=== PATIENT | male | born 1950 | race Caucasian/White ===

== ENCOUNTER 2022-02-21 17:35 | Inpatient (IN) | payer MEDICARE, OTHER ==
[2022-02-21 19:00] LABS: #Lymphocytes 1.2 thou/uL (1.20-3.40); #Monocytes 1.4 thou/uL (0.11-0.59); #Neutrophils 7.9 thou/uL (1.40-6.50); %Basophils 0.1 % (0.0-1.0); %Eosinophils 0.2 % (0.0-10.0); %Lymphocytes 11.3 % (21.0-51.0); %Monocytes 13.1 % (0.0-10.0); %Neutrophils 75.3 % (42.0-75.0); Hemoglobin 13.8 g/dL (14.0-18.0); Mean Corpuscular HGB CONC 32.4 g/dL (32.0-36.0); Mean Corpuscular Hemoglobin 30.5 pg (27.0-31.0); Mean Corpuscular Volume 94.1 fl (78.0-98.0); Mean Platelet Volume 9.5 fL (7.4-10.4); Platelet Count 173 10x3/uL (130-400); RBC Distribution Width 13.8 % (11.5-14.5); Red Blood Cell (RBC) Count 4.51 mill/uL (4.70-6.10); White Blood Cell (WBC) Count 10.5 10x3/uL (4.8-10.8)
[2022-02-21 19:18] LABS: Actual Bicarbonate (HCO3v) 24 mEq/L (22-28); Analyzer IN Cardio ER; Base Excess 0.7 mEq/L (-2.0 to +3.0); Calcium, Ionized (venous) 1.07 mmol/L (1.16-1.32); Chloride (VBG) 99 mmol/L (98-106); Hemoglobin (Hb) 14.5 g/dL (12.6-17.4); Potassium (VBG) 3.78 mmol/L (3.70-5.30); Sodium 131.2 mmol/L (133-146); pH (venous) 7.48 (7.32-7.43)
[2022-02-21 19:29] LABS: Acetaminophen Less than 10.0 mcg/mL (10.0-30.0); Alcohol Less than 10 mg/dL (Less than 10); Salicylate Less than 8.0 mg/dL (15.0-30.0)
[2022-02-21 19:30] LABS: ALT (SGPT) 40 U/L (8-55); AST (SGOT) 42 U/L (5-34); Albumin 3.6 g/dL (3.4-4.8); Alkaline Phosphatase 77 U/L (40-110); Anion Gap 16 mmol/L (10-20); BUN (Urea Nitrogen) 24 mg/dL (8.4-25.7); Bilirubin, Total 3.1 mg/dL (0.2-1.2); Calc. Creatinine Clearance 0 mL/min (70-130); Calcium 8.8 mg/dL (7.8-10.44); Carbon Dioxide 22 mmol/L (23-31); Chloride 100 mmol/L (98-107); Estimated GFR 54; Globulin 2.6 g/dL (2.4-3.5); Glucose 101 mg/dL (83-110); Lipase 20 U/L (8-78); Protein, Total 6.2 g/dL (5.8-8.1); Sodium 134 mmol/L (136-145)
[2022-02-21 19:53] LABS: Bacteria/HPF 4+ HPF (None Seen); Bilirubin Negative (Negative); Blood, Urine Negative (Negative); Clarity Turbid (Clear); Glucose, Urine (Dipstick) Normal (Negative); Ketone, Urine Negative (Negative); Leukocyte 500 Leu/uL (Negative); Nitrite Negative (Negative); Protein, Urine (Dipstick) 10 mg/dL (Neg-Trace); RBC/HPF 0-3 HPF (0-3); Specific Gravity, Urine 1.017 (1.002-1.036); Squamous Epithelial 0-3 HPF (0-3); WBC/HPF Greater than 50 HPF (0-3)
[2022-02-21 19:58] LABS: Amphetamine Not Detected (NotDetected); Barbiturates Screen Not Detected (NotDetected); Benzodiazepine Screen Not Detected (NotDetected); Cocaine Metabolite Screen Not Detected (NotDetected); Methadone Not Detected (NotDetected); Methamphetamine Not Detected (NotDetected); Opiate Screen Not Detected (NotDetected); Oxycodone Screen Not Detected (NotDetected); Phencyclidine (PCP) Not Detected (NotDetected); THC/Cannabinoid Screen Not Detected (NotDetected); Tricyclic Screen Not Detected (NotDetected)
[2022-02-21] MEDS ORDERED: Cefepime 2 GM VIAL ONE (20:14)
[2022-02-21] MEDS ORDERED: Aspirin Chewable 81 MG TAB ONE (20:14)
[2022-02-21] MEDS ORDERED: Acetaminophen 500 MG TAB ONE (20:21)
[2022-02-21] MEDS ORDERED: Vancomycin 1 GM/200 ML (FROZEN) BAG ONE (21:14)
[2022-02-22] MEDS ORDERED: Ondansetron PF 4 MG/2 ML Vial IVP PRN (01:22)
[2022-02-22 05:26] LABS: SARS-CoV-2 NAA Rapid Test Not Detected (NotDetected)
[2022-02-22 06:31] LABS: #Eosinphils 0.1 thou/uL (0.0-0.7); #Lymphocytes 1.9 thou/uL (1.20-3.40); #Monocytes 1.2 thou/uL (0.11-0.59); #Neutrophils 6.1 thou/uL (1.40-6.50); %Basophils 0.1 % (0.0-1.0); %Eosinophils 0.9 % (0.0-10.0); %Lymphocytes 19.9 % (21.0-51.0); %Monocytes 13.3 % (0.0-10.0); %Neutrophils 65.8 % (42.0-75.0); Mean Corpuscular HGB CONC 33.7 g/dL (32.0-36.0); Mean Corpuscular Hemoglobin 32.2 pg (27.0-31.0); Mean Corpuscular Volume 95.5 fl (78.0-98.0); Mean Platelet Volume 9.8 fL (7.4-10.4); Platelet Count 158 10x3/uL (130-400); RBC Distribution Width 13.6 % (11.5-14.5); Red Blood Cell (RBC) Count 4.35 mill/uL (4.70-6.10); White Blood Cell (WBC) Count 9.3 10x3/uL (4.8-10.8)
[2022-02-22 06:40] LABS: Anion Gap 13 mmol/L (10-20); BUN (Urea Nitrogen) 23 mg/dL (8.4-25.7); Calc. Creatinine Clearance 0 mL/min (70-130); Calcium 8.5 mg/dL (7.8-10.44); Carbon Dioxide 19 mmol/L (23-31); Chloride 105 mmol/L (98-107); Estimated GFR 62; Glucose 94 mg/dL (83-110); Potassium 3.5 mmol/L (3.5-5.1); Sodium 133 mmol/L (136-145)
[2022-02-22] MEDS ORDERED: Cefepime 1 GM VIAL ONE (09:29)
[2022-02-22] MEDS: Cefepime 1 GM in Sodium Chloride 0.9% 100 ML IVPB SCH ×2 (09:58→21:14)
[2022-02-22] MEDS: Heparin 5,000 UNITS/ML VIAL SC SCH ×2 (09:59→21:14)
[2022-02-22] MEDS ORDERED: QUEtiapine 25 MG TAB PO SCH (16:20)
[2022-02-22] MEDS ORDERED: Furosemide 20 MG TAB PO ONE (17:43)
[2022-02-22] MEDS ORDERED: Furosemide 20 MG/2 ML VIAL SLOW IVP SCH (17:45)
[2022-02-23 04:59] LABS: #Lymphocytes 1.2 thou/uL (1.20-3.40); #Monocytes 1.3 thou/uL (0.11-0.59); #Neutrophils 7.5 thou/uL (1.40-6.50); %Basophils 0.4 % (0.0-1.0); %Eosinophils 0.4 % (0.0-10.0); %Lymphocytes 12.1 % (21.0-51.0); %Monocytes 13.2 % (0.0-10.0); Hemoglobin 13.2 g/dL (14.0-18.0); Mean Corpuscular HGB CONC 32.7 g/dL (32.0-36.0); Mean Corpuscular Volume 94.7 fl (78.0-98.0); Mean Platelet Volume 9.9 fL (7.4-10.4); Platelet Count 169 10x3/uL (130-400); RBC Distribution Width 13.8 % (11.5-14.5); Red Blood Cell (RBC) Count 4.26 mill/uL (4.70-6.10); White Blood Cell (WBC) Count 10.1 10x3/uL (4.8-10.8)
[2022-02-23 05:21] LABS: Anion Gap 14 mmol/L (10-20); BUN (Urea Nitrogen) 22 mg/dL (8.4-25.7); Calc. Creatinine Clearance 59 mL/min (70-130); Calcium 8.8 mg/dL (7.8-10.44); Carbon Dioxide 22 mmol/L (23-31); Chloride 103 mmol/L (98-107); Estimated GFR 59; Glucose 95 mg/dL (83-110); Potassium 3.7 mmol/L (3.5-5.1); Sodium 135 mmol/L (136-145)
[2022-02-23] MEDS: Cefepime 1 GM in Sodium Chloride 0.9% 100 ML IVPB SCH ×2 (09:53→22:36)
[2022-02-23] MEDS: Heparin 5,000 UNITS/ML VIAL SC SCH ×2 (09:53→22:36)
[2022-02-23] MEDS: Lisinopril 2.5 MG TAB PO SCH (09:53)
[2022-02-23] MEDS: Furosemide 20 MG TAB PO SCH (09:53)
[2022-02-23] MEDS: Digoxin 0.125 MG TAB PO SCH (09:54)
[2022-02-23] MEDS ORDERED: Carvedilol 6.25 MG TAB PO SCH (10:30)
[2022-02-23] MEDS: Carvedilol 6.25 MG TAB PO SCH (16:20)
[2022-02-24 04:37] LABS: #Lymphocytes 1.4 thou/uL (1.20-3.40); #Monocytes 1.1 thou/uL (0.11-0.59); #Neutrophils 7.1 thou/uL (1.40-6.50); %Basophils 0.3 % (0.0-1.0); %Eosinophils 0.4 % (0.0-10.0); %Lymphocytes 14.4 % (21.0-51.0); %Monocytes 11.4 % (0.0-10.0); %Neutrophils 73.5 % (42.0-75.0); Hemoglobin 13.4 g/dL (14.0-18.0); Mean Corpuscular HGB CONC 32.3 g/dL (32.0-36.0); Mean Corpuscular Hemoglobin 30.7 pg (27.0-31.0); Mean Corpuscular Volume 95.2 fl (78.0-98.0); Mean Platelet Volume 10.1 fL (7.4-10.4); Platelet Count 189 10x3/uL (130-400); RBC Distribution Width 13.9 % (11.5-14.5); Red Blood Cell (RBC) Count 4.37 mill/uL (4.70-6.10); White Blood Cell (WBC) Count 9.7 10x3/uL (4.8-10.8)
[2022-02-24 04:49] LABS: Anion Gap 14 mmol/L (10-20); BUN (Urea Nitrogen) 27 mg/dL (8.4-25.7); Calc. Creatinine Clearance 57 mL/min (70-130); Calcium 8.7 mg/dL (7.8-10.44); Carbon Dioxide 20 mmol/L (23-31); Chloride 104 mmol/L (98-107); Estimated GFR 58; Glucose 91 mg/dL (83-110); Potassium 3.5 mmol/L (3.5-5.1); Sodium 134 mmol/L (136-145)
[2022-02-24] MEDS: Digoxin 0.125 MG TAB PO SCH (08:32)
[2022-02-24] MEDS: Cefepime 1 GM in Sodium Chloride 0.9% 100 ML IVPB SCH (08:32)
[2022-02-24] MEDS: Lisinopril 2.5 MG TAB PO SCH (08:33)
[2022-02-24] MEDS: Furosemide 20 MG TAB PO SCH (08:33)
[2022-02-24] MEDS: Carvedilol 6.25 MG TAB PO SCH ×2 (08:33→16:37)
[2022-02-24] MEDS: Heparin 5,000 UNITS/ML VIAL SC SCH ×2 (08:33→22:20)
[2022-02-24] MEDS: Cefdinir 300 MG CAP PO SCH (22:20)
[2022-02-25] MEDS: Furosemide 20 MG TAB PO SCH (09:02)
[2022-02-25] MEDS: Cefdinir 300 MG CAP PO SCH ×2 (09:02→21:50)
[2022-02-25] MEDS: Lisinopril 2.5 MG TAB PO SCH (09:02)
[2022-02-25] MEDS: Digoxin 0.125 MG TAB PO SCH (09:03)
[2022-02-25] MEDS: Heparin 5,000 UNITS/ML VIAL SC SCH ×2 (09:03→21:51)
[2022-02-25] MEDS: Carvedilol 6.25 MG TAB PO SCH ×2 (09:03→17:44)
[2022-02-26] MEDS: Digoxin 0.125 MG TAB PO SCH (09:56)
[2022-02-26] MEDS: Cefdinir 300 MG CAP PO SCH ×2 (09:56→21:01)
[2022-02-26] MEDS: Carvedilol 6.25 MG TAB PO SCH ×2 (09:56→16:57)
[2022-02-26] MEDS: Heparin 5,000 UNITS/ML VIAL SC SCH ×2 (09:56→21:01)
[2022-02-26] MEDS: Furosemide 20 MG TAB PO SCH (09:57)
[2022-02-26] MEDS: Lisinopril 2.5 MG TAB PO SCH (09:57)
[2022-02-27 05:00] LABS: #Eosinphils 0.1 thou/uL (0.0-0.7); #Lymphocytes 1.5 thou/uL (1.20-3.40); %Eosinophils 0.7 % (0.0-10.0); %Lymphocytes 17.9 % (21.0-51.0); %Monocytes 11.7 % (0.0-10.0); %Neutrophils 69.6 % (42.0-75.0); Hemoglobin 13.5 g/dL (14.0-18.0); Mean Corpuscular HGB CONC 32.7 g/dL (32.0-36.0); Mean Corpuscular Hemoglobin 30.8 pg (27.0-31.0); Mean Corpuscular Volume 94.3 fl (78.0-98.0); Mean Platelet Volume 9.6 fL (7.4-10.4); Platelet Count 187 10x3/uL (130-400); RBC Distribution Width 13.7 % (11.5-14.5); Red Blood Cell (RBC) Count 4.39 mill/uL (4.70-6.10); White Blood Cell (WBC) Count 8.6 10x3/uL (4.8-10.8)
[2022-02-27 05:17] LABS: Anion Gap 13 mmol/L (10-20); BUN (Urea Nitrogen) 36 mg/dL (8.4-25.7); Calc. Creatinine Clearance 61 mL/min (70-130); Calcium 8.7 mg/dL (7.8-10.44); Carbon Dioxide 21 mmol/L (23-31); Chloride 101 mmol/L (98-107); Estimated GFR 64; Glucose 81 mg/dL (83-110); Potassium 4.1 mmol/L (3.5-5.1); Sodium 131 mmol/L (136-145)
[2022-02-27] MEDS: Carvedilol 6.25 MG TAB PO SCH ×3 (09:27→17:15)
[2022-02-27] MEDS: Furosemide 20 MG TAB PO SCH ×2 (09:27→21:03)
[2022-02-27] MEDS: Heparin 5,000 UNITS/ML VIAL SC SCH ×2 (09:27→21:03)
[2022-02-27] MEDS: Digoxin 0.125 MG TAB PO SCH (09:27)
[2022-02-27] MEDS: Lisinopril 2.5 MG TAB PO SCH (09:27)
[2022-02-28 05:08] LABS: Anion Gap 13 mmol/L (10-20); BUN (Urea Nitrogen) 42 mg/dL (8.4-25.7); Calc. Creatinine Clearance 55 mL/min (70-130); Calcium 9.1 mg/dL (7.8-10.44); Carbon Dioxide 25 mmol/L (23-31); Chloride 99 mmol/L (98-107); Estimated GFR 55; Glucose 92 mg/dL (83-110); Potassium 4.2 mmol/L (3.5-5.1); Sodium 133 mmol/L (136-145)
[2022-02-28] MEDS: Heparin 5,000 UNITS/ML VIAL SC SCH ×2 (09:24→20:30)
[2022-02-28] MEDS: Furosemide 20 MG TAB PO SCH ×2 (09:24→20:29)
[2022-02-28] MEDS: Digoxin 0.125 MG TAB PO SCH (09:24)
[2022-02-28] MEDS: Carvedilol 6.25 MG TAB PO SCH ×2 (09:24→16:11)
[2022-02-28] MEDS: Lisinopril 2.5 MG TAB PO SCH (09:25)
[2022-02-28] MEDS: Acetaminophen 325 MG TAB PO PRN (20:29)
[2022-03-01] MEDS: Digoxin 0.125 MG TAB PO SCH (08:33)
[2022-03-01] MEDS: Carvedilol 6.25 MG TAB PO SCH ×2 (08:33→20:12)
[2022-03-01] MEDS: Furosemide 20 MG TAB PO SCH (08:34)
[2022-03-01] MEDS: Heparin 5,000 UNITS/ML VIAL SC SCH ×2 (08:34→20:12)
[2022-03-01] MEDS: Lisinopril 2.5 MG TAB PO SCH (08:35)
[2022-03-01] MEDS ORDERED: Electrolyte Replacement Protocol FS PRN (14:00)
[2022-03-01] MEDS ORDERED: Electrolyte Replacement Protocol 1 EACH FS SCH (14:00)
[2022-03-02 07:03] LABS: #Eosinphils 0.1 thou/uL (0.0-0.7); #Lymphocytes 1.5 thou/uL (1.20-3.40); #Monocytes 0.7 thou/uL (0.11-0.59); #Neutrophils 4.6 thou/uL (1.40-6.50); %Basophils 0.5 % (0.0-1.0); %Eosinophils 1.4 % (0.0-10.0); %Lymphocytes 21.1 % (21.0-51.0); %Monocytes 10.5 % (0.0-10.0); %Neutrophils 66.5 % (42.0-75.0); Hemoglobin 13.9 g/dL (14.0-18.0); Mean Corpuscular HGB CONC 32.2 g/dL (32.0-36.0); Mean Corpuscular Hemoglobin 30.6 pg (27.0-31.0); Mean Platelet Volume 9.3 fL (7.4-10.4); Platelet Count 189 10x3/uL (130-400); RBC Distribution Width 13.6 % (11.5-14.5); Red Blood Cell (RBC) Count 4.55 mill/uL (4.70-6.10)
[2022-03-02 07:29] LABS: ALT (SGPT) 32 U/L (8-55); AST (SGOT) 26 U/L (5-34); Albumin 2.9 g/dL (3.4-4.8); Alkaline Phosphatase 95 U/L (40-110); Anion Gap 14 mmol/L (10-20); BUN (Urea Nitrogen) 32 mg/dL (8.4-25.7); Bilirubin, Total 1.2 mg/dL (0.2-1.2); Calc. Creatinine Clearance 56 mL/min (70-130); Carbon Dioxide 24 mmol/L (23-31); Chloride 101 mmol/L (98-107); Estimated GFR 60; Globulin 3.3 g/dL (2.4-3.5); Glucose 78 mg/dL (83-110); Phosphorus 2.9 mg/dL (2.3-4.7); Protein, Total 6.2 g/dL (5.8-8.1); Sodium 135 mmol/L (136-145)
[2022-03-02] MEDS: Heparin 5,000 UNITS/ML VIAL SC SCH ×2 (08:32→20:20)
[2022-03-02] MEDS: Lisinopril 2.5 MG TAB PO SCH (08:32)
[2022-03-02] MEDS: Carvedilol 6.25 MG TAB PO SCH ×2 (08:32→16:23)
[2022-03-02] MEDS ORDERED: Magnesium 2 GM/50 ML(in water) 2 GM in Premix Bag 1 BAG IVPB SCH (09:00)
[2022-03-02] MEDS: Magnesium Oxide 400 MG TAB PO SCH ×2 (09:11→20:18)
[2022-03-02] MEDS: Digoxin 0.125 MG TAB PO SCH (09:11)
[2022-03-02] MEDS: Furosemide 20 MG TAB PO SCH (09:11)
[2022-03-03] MEDS: Magnesium Oxide 400 MG TAB PO SCH ×2 (08:50→20:26)
[2022-03-03] MEDS: Carvedilol 6.25 MG TAB PO SCH ×2 (08:50→17:27)
[2022-03-03] MEDS: Furosemide 20 MG TAB PO SCH (08:50)
[2022-03-03] MEDS: Digoxin 0.125 MG TAB PO SCH (08:50)
[2022-03-03] MEDS: Lisinopril 2.5 MG TAB PO SCH (08:50)
[2022-03-03] MEDS: Heparin 5,000 UNITS/ML VIAL SC SCH ×2 (08:51→20:26)
[2022-03-04] MEDS: Lisinopril 2.5 MG TAB PO SCH (08:46)
[2022-03-04] MEDS: Digoxin 0.125 MG TAB PO SCH (08:48)
[2022-03-04] MEDS: Carvedilol 6.25 MG TAB PO SCH ×2 (08:48→17:55)
[2022-03-04] MEDS: Furosemide 20 MG TAB PO SCH (08:48)
[2022-03-04] MEDS: Magnesium Oxide 400 MG TAB PO SCH ×2 (08:48→21:17)
[2022-03-04] MEDS: Heparin 5,000 UNITS/ML VIAL SC SCH ×2 (08:49→21:18)
[2022-03-05 07:13] LABS: #Eosinphils 0.2 thou/uL (0.0-0.7); #Lymphocytes 1.7 thou/uL (1.20-3.40); #Neutrophils 4.9 thou/uL (1.40-6.50); %Basophils 0.3 % (0.0-1.0); %Eosinophils 2.3 % (0.0-10.0); %Lymphocytes 21.7 % (21.0-51.0); %Monocytes 13.1 % (0.0-10.0); %Neutrophils 62.7 % (42.0-75.0); Hemoglobin 13.5 g/dL (14.0-18.0); Mean Corpuscular HGB CONC 32.6 g/dL (32.0-36.0); Mean Corpuscular Hemoglobin 31.4 pg (27.0-31.0); Mean Corpuscular Volume 96.4 fl (78.0-98.0); Mean Platelet Volume 9.2 fL (7.4-10.4); Platelet Count 173 10x3/uL (130-400); RBC Distribution Width 13.5 % (11.5-14.5); Red Blood Cell (RBC) Count 4.29 mill/uL (4.70-6.10); White Blood Cell (WBC) Count 7.9 10x3/uL (4.8-10.8)
[2022-03-05 07:38] LABS: ALT (SGPT) 34 U/L (8-55); AST (SGOT) 27 U/L (5-34); Albumin 2.9 g/dL (3.4-4.8); Alkaline Phosphatase 96 U/L (40-110); Anion Gap 13 mmol/L (10-20); BUN (Urea Nitrogen) 26 mg/dL (8.4-25.7); Bilirubin, Total 1.1 mg/dL (0.2-1.2); Calc. Creatinine Clearance 66 mL/min (70-130); Calcium 8.8 mg/dL (7.8-10.44); Carbon Dioxide 22 mmol/L (23-31); Chloride 103 mmol/L (98-107); Estimated GFR 73; Globulin 3.3 g/dL (2.4-3.5); Glucose 86 mg/dL (83-110); Potassium 4.6 mmol/L (3.5-5.1); Protein, Total 6.2 g/dL (5.8-8.1); Sodium 133 mmol/L (136-145)
[2022-03-05] MEDS: Lisinopril 2.5 MG TAB PO SCH (09:28)
[2022-03-05] MEDS: Digoxin 0.125 MG TAB PO SCH (09:29)
[2022-03-05] MEDS: Furosemide 20 MG TAB PO SCH (09:29)
[2022-03-05] MEDS: Magnesium Oxide 400 MG TAB PO SCH ×2 (09:29→21:32)
[2022-03-05] MEDS: Carvedilol 6.25 MG TAB PO SCH ×2 (09:29→18:16)
[2022-03-05] MEDS: Heparin 5,000 UNITS/ML VIAL SC SCH ×3 (09:35→21:32)
[2022-03-06 06:40] LABS: #Eosinphils 0.2 thou/uL (0.0-0.7); #Lymphocytes 1.7 thou/uL (1.20-3.40); #Monocytes 0.9 thou/uL (0.11-0.59); #Neutrophils 4.8 thou/uL (1.40-6.50); %Basophils 0.4 % (0.0-1.0); %Eosinophils 2.1 % (0.0-10.0); %Lymphocytes 22.6 % (21.0-51.0); %Monocytes 11.6 % (0.0-10.0); %Neutrophils 63.3 % (42.0-75.0); Hemoglobin 13.3 g/dL (14.0-18.0); Mean Corpuscular HGB CONC 32.7 g/dL (32.0-36.0); Mean Corpuscular Hemoglobin 31.2 pg (27.0-31.0); Mean Corpuscular Volume 95.5 fl (78.0-98.0); Mean Platelet Volume 9.5 fL (7.4-10.4); Platelet Count 171 10x3/uL (130-400); RBC Distribution Width 13.6 % (11.5-14.5); Red Blood Cell (RBC) Count 4.28 mill/uL (4.70-6.10); White Blood Cell (WBC) Count 7.5 10x3/uL (4.8-10.8)
[2022-03-06 06:56] LABS: Anion Gap 14 mmol/L (10-20); BUN (Urea Nitrogen) 27 mg/dL (8.4-25.7); Calc. Creatinine Clearance 59 mL/min (70-130); Calcium 8.7 mg/dL (7.8-10.44); Carbon Dioxide 20 mmol/L (23-31); Chloride 104 mmol/L (98-107); Estimated GFR 63; Glucose 79 mg/dL (83-110); Potassium 4.8 mmol/L (3.5-5.1); Sodium 133 mmol/L (136-145)
[2022-03-06] MEDS: Heparin 5,000 UNITS/ML VIAL SC SCH ×3 (09:36→20:23)
[2022-03-06] MEDS: Digoxin 0.125 MG TAB PO SCH (10:05)
[2022-03-06] MEDS: Carvedilol 6.25 MG TAB PO SCH ×2 (10:05→17:37)
[2022-03-06] MEDS: Lisinopril 2.5 MG TAB PO SCH (10:06)
[2022-03-06] MEDS: Magnesium Oxide 400 MG TAB PO SCH ×2 (10:07→20:23)
[2022-03-07 07:15] LABS: #Eosinphils 0.2 thou/uL (0.0-0.7); #Lymphocytes 2.1 thou/uL (1.20-3.40); #Monocytes 1.1 thou/uL (0.11-0.59); #Neutrophils 5.8 thou/uL (1.40-6.50); %Basophils 0.4 % (0.0-1.0); %Eosinophils 1.8 % (0.0-10.0); %Lymphocytes 22.5 % (21.0-51.0); %Monocytes 12.1 % (0.0-10.0); %Neutrophils 63.3 % (42.0-75.0); Hemoglobin 14.1 g/dL (14.0-18.0); Mean Corpuscular HGB CONC 32.5 g/dL (32.0-36.0); Mean Corpuscular Volume 95.4 fl (78.0-98.0); Mean Platelet Volume 9.2 fL (7.4-10.4); Platelet Count 191 10x3/uL (130-400); RBC Distribution Width 13.6 % (11.5-14.5); Red Blood Cell (RBC) Count 4.55 mill/uL (4.70-6.10); White Blood Cell (WBC) Count 9.1 10x3/uL (4.8-10.8)
[2022-03-07 07:37] LABS: Anion Gap 16 mmol/L (10-20); BUN (Urea Nitrogen) 26 mg/dL (8.4-25.7); Calc. Creatinine Clearance 64 mL/min (70-130); Calcium 8.9 mg/dL (7.8-10.44); Carbon Dioxide 22 mmol/L (23-31); Chloride 102 mmol/L (98-107); Estimated GFR 69; Glucose 82 mg/dL (83-110); Potassium 4.8 mmol/L (3.5-5.1); Sodium 135 mmol/L (136-145)
[2022-03-07] MEDS: Digoxin 0.125 MG TAB PO SCH (08:41)
[2022-03-07] MEDS: Carvedilol 6.25 MG TAB PO SCH ×2 (08:41→17:16)
[2022-03-07] MEDS: Heparin 5,000 UNITS/ML VIAL SC SCH ×3 (08:41→21:11)
[2022-03-07] MEDS: Lisinopril 2.5 MG TAB PO SCH (08:41)
[2022-03-07] MEDS: Furosemide 20 MG TAB PO SCH (08:41)
[2022-03-07] MEDS: Magnesium Oxide 400 MG TAB PO SCH ×2 (08:41→20:44)
[2022-03-08 07:47] LABS: #Eosinphils 0.1 thou/uL (0.0-0.7); #Lymphocytes 1.6 thou/uL (1.20-3.40); #Monocytes 0.8 thou/uL (0.11-0.59); #Neutrophils 3.8 thou/uL (1.40-6.50); %Basophils 0.2 % (0.0-1.0); %Eosinophils 2.2 % (0.0-10.0); %Lymphocytes 25.7 % (21.0-51.0); %Monocytes 12.6 % (0.0-10.0); %Neutrophils 59.3 % (42.0-75.0); Hemoglobin 13.6 g/dL (14.0-18.0); Mean Corpuscular HGB CONC 31.7 g/dL (32.0-36.0); Mean Corpuscular Hemoglobin 30.4 pg (27.0-31.0); Mean Corpuscular Volume 95.8 fl (78.0-98.0); Platelet Count 204 10x3/uL (130-400); RBC Distribution Width 13.6 % (11.5-14.5); Red Blood Cell (RBC) Count 4.49 mill/uL (4.70-6.10); White Blood Cell (WBC) Count 6.4 10x3/uL (4.8-10.8)
[2022-03-08 08:02] LABS: Anion Gap 14 mmol/L (10-20); BUN (Urea Nitrogen) 24 mg/dL (8.4-25.7); Calc. Creatinine Clearance 66 mL/min (70-130); Calcium 8.8 mg/dL (7.8-10.44); Carbon Dioxide 19 mmol/L (23-31); Chloride 104 mmol/L (98-107); Estimated GFR 73; Glucose 79 mg/dL (83-110); Magnesium 2.1 mg/dL (1.6-2.6); Phosphorus 3.3 mg/dL (2.3-4.7); Potassium 4.5 mmol/L (3.5-5.1); Sodium 132 mmol/L (136-145)
[2022-03-08] MEDS: Magnesium Oxide 400 MG TAB PO SCH ×2 (09:06→20:20)
[2022-03-08] MEDS: Lisinopril 2.5 MG TAB PO SCH (09:06)
[2022-03-08] MEDS: Heparin 5,000 UNITS/ML VIAL SC SCH ×3 (09:06→20:21)
[2022-03-08] MEDS: Furosemide 20 MG TAB PO SCH (09:06)
[2022-03-08] MEDS: Carvedilol 6.25 MG TAB PO SCH ×2 (09:06→17:12)
[2022-03-08] MEDS: Digoxin 0.125 MG TAB PO SCH (09:06)
[2022-03-08] MEDS: Acetaminophen 325 MG TAB PO PRN (20:20)
[2022-03-09 07:17] LABS: #Eosinphils 0.2 thou/uL (0.0-0.7); #Lymphocytes 1.7 thou/uL (1.20-3.40); #Neutrophils 4.5 thou/uL (1.40-6.50); %Basophils 0.4 % (0.0-1.0); %Eosinophils 2.5 % (0.0-10.0); %Lymphocytes 22.5 % (21.0-51.0); %Monocytes 13.3 % (0.0-10.0); %Neutrophils 61.3 % (42.0-75.0); Hemoglobin 14.5 g/dL (14.0-18.0); Mean Corpuscular HGB CONC 32.5 g/dL (32.0-36.0); Mean Corpuscular Hemoglobin 31.1 pg (27.0-31.0); Mean Corpuscular Volume 95.7 fl (78.0-98.0); Mean Platelet Volume 8.8 fL (7.4-10.4); Platelet Count 219 10x3/uL (130-400); RBC Distribution Width 13.5 % (11.5-14.5); Red Blood Cell (RBC) Count 4.68 mill/uL (4.70-6.10); White Blood Cell (WBC) Count 7.4 10x3/uL (4.8-10.8)
[2022-03-09 07:32] LABS: Anion Gap 15 mmol/L (10-20); BUN (Urea Nitrogen) 24 mg/dL (8.4-25.7); Calc. Creatinine Clearance 65 mL/min (70-130); Carbon Dioxide 20 mmol/L (23-31); Chloride 103 mmol/L (98-107); Estimated GFR 73; Glucose 72 mg/dL (83-110); Magnesium 2.1 mg/dL (1.6-2.6); Potassium 4.4 mmol/L (3.5-5.1); Sodium 134 mmol/L (136-145)
[2022-03-09] MEDS: Carvedilol 6.25 MG TAB PO SCH ×2 (10:05→17:43)
[2022-03-09] MEDS: Lisinopril 2.5 MG TAB PO SCH (10:06)
[2022-03-09] MEDS: Furosemide 20 MG TAB PO SCH (10:06)
[2022-03-09] MEDS: Magnesium Oxide 400 MG TAB PO SCH ×2 (10:06→21:02)
[2022-03-09] MEDS: Heparin 5,000 UNITS/ML VIAL SC SCH ×3 (10:06→20:46)
[2022-03-09] MEDS: Digoxin 0.125 MG TAB PO SCH (10:06)
[2022-03-09] MEDS: Acetaminophen 325 MG TAB PO PRN (20:47)
[2022-03-10] MEDS: Carvedilol 6.25 MG TAB PO SCH ×2 (08:43→17:10)
[2022-03-10] MEDS: Digoxin 0.125 MG TAB PO SCH (08:43)
[2022-03-10] MEDS: Heparin 5,000 UNITS/ML VIAL SC SCH ×3 (08:43→20:36)
[2022-03-10] MEDS: Lisinopril 2.5 MG TAB PO SCH (08:43)
[2022-03-10] MEDS: Furosemide 20 MG TAB PO SCH (08:43)
[2022-03-10] MEDS: Magnesium Oxide 400 MG TAB PO SCH ×2 (08:44→20:37)
[2022-03-10] MEDS: Acetaminophen 325 MG TAB PO PRN (20:36)
[2022-03-11] MEDS: Carvedilol 6.25 MG TAB PO SCH ×2 (09:20→17:04)
[2022-03-11] MEDS: Furosemide 20 MG TAB PO SCH (09:23)
[2022-03-11] MEDS: Lisinopril 2.5 MG TAB PO SCH (09:23)
[2022-03-11] MEDS: Digoxin 0.125 MG TAB PO SCH (09:23)
[2022-03-11] MEDS: Heparin 5,000 UNITS/ML VIAL SC SCH ×3 (09:24→20:25)
[2022-03-11] MEDS: Magnesium Oxide 400 MG TAB PO SCH ×2 (09:24→20:23)
[2022-03-12] MEDS: Carvedilol 6.25 MG TAB PO SCH ×2 (09:13→17:17)
[2022-03-12] MEDS: Lisinopril 2.5 MG TAB PO SCH (09:13)
[2022-03-12] MEDS: Heparin 5,000 UNITS/ML VIAL SC SCH ×3 (09:13→20:30)
[2022-03-12] MEDS: Digoxin 0.125 MG TAB PO SCH (09:39)
[2022-03-12] MEDS: Magnesium Oxide 400 MG TAB PO SCH ×2 (09:40→20:23)
[2022-03-12] MEDS: Furosemide 20 MG TAB PO SCH (09:40)
[2022-03-13] MEDS: Digoxin 0.125 MG TAB PO SCH (07:50)
[2022-03-13] MEDS: Lisinopril 2.5 MG TAB PO SCH (07:50)
[2022-03-13] MEDS: Heparin 5,000 UNITS/ML VIAL SC SCH ×3 (07:51→20:59)
[2022-03-13] MEDS: Carvedilol 6.25 MG TAB PO SCH ×2 (07:51→16:16)
[2022-03-13] MEDS: Magnesium Oxide 400 MG TAB PO SCH ×2 (07:51→20:56)
[2022-03-13] MEDS: Furosemide 20 MG TAB PO SCH (07:51)
[2022-03-14] MEDS: Lisinopril 2.5 MG TAB PO SCH (08:45)
[2022-03-14] MEDS: Digoxin 0.125 MG TAB PO SCH (08:45)
[2022-03-14] MEDS: Carvedilol 6.25 MG TAB PO SCH ×2 (08:45→16:12)
[2022-03-14] MEDS: Heparin 5,000 UNITS/ML VIAL SC SCH ×3 (08:45→20:43)
[2022-03-14] MEDS: Furosemide 20 MG TAB PO SCH (08:45)
[2022-03-14] MEDS: Magnesium Oxide 400 MG TAB PO SCH ×2 (08:45→20:44)
[2022-03-15 08:53] LABS: #Basophils 0.1 thou/uL (0.0-0.2); #Eosinphils 0.1 thou/uL (0.0-0.7); #Lymphocytes 1.9 thou/uL (1.20-3.40); #Monocytes 0.9 thou/uL (0.11-0.59); #Neutrophils 3.9 thou/uL (1.40-6.50); %Eosinophils 1.6 % (0.0-10.0); %Lymphocytes 27.2 % (21.0-51.0); %Monocytes 13.4 % (0.0-10.0); %Neutrophils 56.9 % (42.0-75.0); Hemoglobin 16.5 g/dL (14.0-18.0); Mean Corpuscular HGB CONC 32.6 g/dL (32.0-36.0); Mean Corpuscular Volume 94.9 fl (78.0-98.0); Mean Platelet Volume 8.9 fL (7.4-10.4); Platelet Count 245 10x3/uL (130-400); RBC Distribution Width 13.4 % (11.5-14.5); Red Blood Cell (RBC) Count 5.34 mill/uL (4.70-6.10); White Blood Cell (WBC) Count 6.9 10x3/uL (4.8-10.8)
[2022-03-15 09:12] LABS: Anion Gap 19 mmol/L (10-20); BUN (Urea Nitrogen) 36 mg/dL (8.4-25.7); Calc. Creatinine Clearance 53 mL/min (70-130); Calcium 9.8 mg/dL (7.8-10.44); Carbon Dioxide 21 mmol/L (23-31); Chloride 102 mmol/L (98-107); Estimated GFR 59; Glucose 73 mg/dL (83-110); Potassium 4.5 mmol/L (3.5-5.1); Sodium 137 mmol/L (136-145)
[2022-03-15] MEDS: Carvedilol 6.25 MG TAB PO SCH ×2 (09:44→17:35)
[2022-03-15] MEDS: Lisinopril 2.5 MG TAB PO SCH (09:45)
[2022-03-15] MEDS: Heparin 5,000 UNITS/ML VIAL SC SCH ×3 (09:47→20:11)
[2022-03-15] MEDS: Magnesium Oxide 400 MG TAB PO SCH ×2 (09:47→20:11)
[2022-03-15] MEDS: Digoxin 0.125 MG TAB PO SCH (09:47)
[2022-03-15] MEDS: Furosemide 20 MG TAB PO SCH (09:47)
[2022-03-16 11:20] LABS: Band 2 % (5-11); Eosinophils 2 % (0-10); Hemoglobin 17.5 g/dL (14.0-18.0); Lymphocytes 35 % (21-51); MDiff Complete? YES; Mean Corpuscular Hemoglobin 29.7 pg (27.0-31.0); Mean Corpuscular Volume 95.9 fl (78.0-98.0); Mean Platelet Volume 8.5 fL (7.4-10.4); Monocytes 10 % (0-10); Neutrophil 51 % (42-75); Platelet Count 239 10x3/uL (130-400); RBC Distribution Width 13.4 % (11.5-14.5); RBC Morphology Normal; Red Blood Cell (RBC) Count 5.89 mill/uL (4.70-6.10); White Blood Cell (WBC) Count 6.6 10x3/uL (4.8-10.8)
[2022-03-16 11:27] LABS: Anion Gap 19 mmol/L (10-20); BUN (Urea Nitrogen) 33 mg/dL (8.4-25.7); Calc. Creatinine Clearance 50 mL/min (70-130); Calcium 10.1 mg/dL (7.8-10.44); Carbon Dioxide 19 mmol/L (23-31); Chloride 105 mmol/L (98-107); Estimated GFR 54; Glucose 76 mg/dL (83-110); Sodium 138 mmol/L (136-145)
[2022-03-16] MEDS: Digoxin 0.125 MG TAB PO SCH (11:40)
[2022-03-16] MEDS: Carvedilol 6.25 MG TAB PO SCH ×2 (11:40→19:19)
[2022-03-16] MEDS: Furosemide 20 MG TAB PO SCH (11:41)
[2022-03-16] MEDS: Heparin 5,000 UNITS/ML VIAL SC SCH ×3 (11:41→21:01)
[2022-03-16] MEDS: Magnesium Oxide 400 MG TAB PO SCH ×2 (11:41→21:01)
[2022-03-16] MEDS: Lisinopril 2.5 MG TAB PO SCH (11:41)
[2022-03-16] MEDS ORDERED: Sodium Bicarb 50 MEQ/50 ML Abboject 8.4% SYRINGE IVP SCH (15:45)
[2022-03-16] MEDS: Lactated Ringer's 1,000 ML IV SCH (18:50)
[2022-03-16] MEDS: Acetaminophen 325 MG TAB PO PRN (21:01)
[2022-03-17] MEDS: Lactated Ringer's 1,000 ML IV SCH (05:42)
[2022-03-17 06:30] VITALS: TEMP 97.4
[2022-03-17] MEDS: Carvedilol 6.25 MG TAB PO SCH (09:30)
[2022-03-17] MEDS: Lisinopril 2.5 MG TAB PO SCH (09:33)
[2022-03-17] MEDS: Digoxin 0.125 MG TAB PO SCH (09:36)
[2022-03-17] MEDS: Magnesium Oxide 400 MG TAB PO SCH (09:37)
[2022-03-17] MEDS: Heparin 5,000 UNITS/ML VIAL SC SCH ×2 (09:46→15:52)
[2022-03-17 13:24] LABS: Anion Gap 17 mmol/L (10-20); BUN (Urea Nitrogen) 36 mg/dL (8.4-25.7); Calc. Creatinine Clearance 48 mL/min (70-130); Calcium 9.5 mg/dL (7.8-10.44); Carbon Dioxide 17 mmol/L (23-31); Chloride 104 mmol/L (98-107); Estimated GFR 52; Glucose 132 mg/dL (83-110); Potassium 4.9 mmol/L (3.5-5.1); Sodium 133 mmol/L (136-145)
[2022-03-17 14:59] VITALS: BMI 22.9
[2022-03-17 20:42] VITALS: BP 115/70
== END 2022-03-17 16:32 | DRG 871 ==
LOC: ERS 17:35 → ERHOLD 21:30 → 2NO 22:39 → OBSVTOIN 02-22 12:18 → 2NO 02-22 14:59 → T4-B 02-28 11:58
PROVIDERS: ADMIT Internal Medicine; ATTEND Hospitalist
DX: A41.51 Sepsis due to Escherichia coli [E. coli] (principal); G93.41 Metabolic encephalopathy; I21.A1 Myocardial infarction type 2; I50.22 Chronic systolic (congestive) heart failure; I13.0 Hypertensive heart and chronic kidney disease with heart failure and stage 1 through stage 4 chronic kidney disease, or unspecified chronic kidney disease; N30.00 Acute cystitis without hematuria; N17.9 Acute kidney failure, unspecified; Z66 Do not resuscitate; F20.0 Paranoid schizophrenia; E44.0 Moderate protein-calorie malnutrition; E87.1 Hypo-osmolality and hyponatremia; Z20.822 Contact with and (suspected) exposure to COVID-19; R65.20 Severe sepsis without septic shock; F03.90 Unspecified dementia, unspecified severity, without behavioral disturbance, psychotic disturbance, mood disturbance, and anxiety; I25.5 Ischemic cardiomyopathy; I25.10 Atherosclerotic heart disease of native coronary artery without angina pectoris; D63.1 Anemia in chronic kidney disease; N18.30 Chronic kidney disease, stage 3 unspecified; Z79.82 Long term (current) use of aspirin; Z95.810 Presence of automatic (implantable) cardiac defibrillator; Z95.1 Presence of aortocoronary bypass graft; Z68.22 Body mass index [BMI] 22.0-22.9, adult
CPT/HCPCS: 36415; 36416; 70450; 71045; 80048; 80053; 80306; 80307; 81003; 81015; 82553; 82805; 83605; 83690; 83735; 83880; 84100; 84484; 85025; 86141; 87040; 87077; 87086; 87186; 87811; 93005; 93306; 96365; 96375; 96376; G0378; J0692; J1644; J1940; J3370-JW; J3490; U0003; U0005